=== PATIENT | female | born 1925 | race Caucasian/White ===

== ENCOUNTER 2017-02-19 07:41 | Emergency (ER) | payer OTHER ==
[~2017-02-19] VITALS: Ht 154.9 cm; Wt 87.7 kg
[~2017-02-19 07:41] MED LIST: ACETAMINOPHEN500 MG PO; ACIPHEX20 MG PO; AMLODIPINE BESY10 MG PO; AMLODIPINE BESYL5 MG PO; ASPIRIN325 MG PO; ATENOLOL100 MG PO; ATENOLOL50 MG PO; BACTRIM,SEPT1 TABLET PO; CALCIUM 500 +1 EAC2 PO; CALCIUM 500 WI1 EAC2 PO; FISH OIL300 MG PO; HYDROCODON-ACE1 EAC7 PO; LISINOPRIL10 MG PO; METAMUCIL CAPSU1 CAP PO; METFORMIN HCL1000 MG PO; MIRALAX17 GM PO; MULTI-VITAMIN1 EAC4 PO; TYLENOL REGULA325 MG PO; VICODIN 5-3001 EACH PO; ZOCOR10 MG PO
[2017-02-19 12:47] VITALS: BP 123/64
== END 2017-02-19 14:02 | disposition home or self-care (01) ==
LOC: EME → EDBD 07:41 → EME 07:41
PROC: 2W3RX1Z Immobilization of Left Lower Leg using Splint (ICD-10-PCS; principal; 2017-02-19)
DX: S92.352A Displaced fracture of fifth metatarsal bone, left foot, initial encounter for closed fracture (principal); S61.412A Laceration without foreign body of left hand, initial encounter; S80.212A Abrasion, left knee, initial encounter; S00.83XA Contusion of other part of head, initial encounter; W19.XXXA Unspecified fall, initial encounter; Y93.E2 Activity, laundry; Z98.1 Arthrodesis status; I10 Essential (primary) hypertension; E11.9 Type 2 diabetes mellitus without complications; G89.29 Other chronic pain; E78.5 Hyperlipidemia, unspecified; Z96.653 Presence of artificial knee joint, bilateral; Z79.82 Long term (current) use of aspirin
CPT/HCPCS: 70450; 70480; 72131; 73564; 73610; 73630; 99281; 99285